=== PATIENT | female | born 1990 | race Caucasian/White ===

== ENCOUNTER 2017-05-29 20:18 | Emergency (ER) | payer SELFPAY ==
[~2017-05-29] VITALS: Ht 160 cm; Wt 56.8 kg
[2017-05-29 20:25] VITALS: BP 124/81
[2017-05-29] MEDS ORDERED: PREDNISONE 20MG TABLET PO ONE (21:00)
[2017-05-29] MEDS ORDERED: FAMOTIDINE 20MG TABLET PO ONE (21:00)
== END 2017-05-29 21:25 | disposition home or self-care (01) ==
LOC: ER 20:34
DX: T78.40XA Allergy, unspecified, initial encounter (principal); L50.0 Allergic urticaria; E11.9 Type 2 diabetes mellitus without complications; Z79.4 Long term (current) use of insulin; Z90.49 Acquired absence of other specified parts of digestive tract; Y92.89 Other specified places as the place of occurrence of the external cause
CPT/HCPCS: 81025; 99283; J7512